=== PATIENT | female | born 1990 | race Caucasian/White ===

== ENCOUNTER 2019-06-08 09:50 | Emergency (ER) | payer OTHER ==
[~2019-06-08] VITALS: Ht 175.3 cm; Wt 123.2 kg
--- NOTE | 2019-06-08 10:02 | NUR ---
C-COLLAR APPLIED FOR CERVICAL NECK PAIN/TENDERNESS
[2019-06-08] MEDS ORDERED: KETOROLAC 30 MG/1 ML ONE (10:13)
[2019-06-08] MEDS ORDERED: KETOROLAC 30 MG/1 ML IM ONE (10:30)
[2019-06-08 11:04] VITALS: BP 141/74
--- NOTE | 2019-06-08 11:04 | NUR ---
PT RETURNED FROM CT AND C-COLLAR OK TO REMOVE PER PA. PT TO XRAY
--- NOTE | 2019-06-08 11:26 | NUR ---
PT AMBULATED TO BATHROOM WITH STEADY GAIT
--- NOTE | 2019-06-08 12:14 | NUR ---
RECEIVED REPORT FROM CANDY WRIGHT. ASSUMING CARE AT THIS TIME.
== END 2019-06-08 12:28 ==
LOC: ED 12:14
DX: S16.1XXA Strain of muscle, fascia and tendon at neck level, initial encounter (principal); S39.012A Strain of muscle, fascia and tendon of lower back, initial encounter; S70.01XA Contusion of right hip, initial encounter; M25.511 Pain in right shoulder; V49.59XA Passenger injured in collision with other motor vehicles in traffic accident, initial encounter; Y93.89 Activity, other specified; Y92.410 Unspecified street and highway as the place of occurrence of the external cause; Y99.8 Other external cause status
CPT/HCPCS: 72072; 72110; 72125; 73502; 96372; 99284; J1885